=== PATIENT | male | born 1970 | race Caucasian/White ===

== ENCOUNTER 2021-05-09 09:51 | Outpatient (REF) | payer OTHER, SELFPAY ==
[2021-05-09 11:27] LABS: MANUAL DIFF FLAG NO
[2021-05-09 11:38] LABS: Basophils Percent Auto 0.3 % (0-2); Eosinophils Absolute Auto 0.2 X10*3/uL (0.0-0.4); Eosinophils Percent Auto 2.9 % (0-4); Hemoglobin 19.3 g/dl (14.0-18.0); Imm Gran Abs Auto 0.03 X10*3/uL (0.00-0.03); Imm Gran Pct Auto 0.5 % (0.0-0.4); Lymphocytes Absolute Auto 0.8 X10*3/uL (1.2-4.9); Mean Corpuscular HGB Conc 33.9 g/dl (31.0-36.0); Mean Corpuscular Hemoglobin 29.7 pg (27.0-33.0); Mean Corpuscular Volume 87.7 fL (80-98); Mean Platelet Volume 9.8 fL (9.4-12.4); Monocytes Absolute Auto 0.6 X10*3/uL (0.1-1.2); Monocytes Percent Auto 9.4 % (2-11); Neutrophils Absolute Auto 4.7 X10*3/uL (2.0-8.3); Neutrophils Percent Auto 74.9 % (45-73); Platelet Count 260 X10*3/uL (160-400); White Blood Count 6.3 X10*3/uL (4.8-10.8)
[2021-05-09 12:04] LABS: Alanine Aminotransferase 29 U/L (0-40); Albumin Level 4.3 g/dL (3.5-5.0); Alkaline Phosphatase 75 U/L (39-117); Anion Gap 12 (12-20); Aspartate Amino Transferase 33 U/L (5-37); Bilirubin Total 1.2 mg/dL (0.0-1.0); Blood Urea Nitrogen 15 mg/dL (9-16); Calcium 9.4 mg/dL (8.4-10.2); Carbon Dioxide 25 mmol/L (22-29); Chloride 104 mmol/L (96-108); Cholesterol 162 mg/dL; Estimated Glomerular Filt Rate > 60; Glucose Fasting 90 mg/dL (60-99); HDL Cholesterol 56 mg/dL; LDL Cholesterol Calculated 65 mg/dl; Potassium 4.4 mmol/L (3.3-5.1); Sodium 137 mmol/L (135-145); Triglycerides 206 mg/dL
== END 2021-05-09 09:52 | disposition home or self-care (01) ==
LOC: HO.HMGCLDS 09:51
PROVIDERS: PCP Internal Medicine; Visit Provider Internal Medicine
DX: K21.9 Gastro-esophageal reflux disease without esophagitis (principal); E78.5 Hyperlipidemia, unspecified; I10 Essential (primary) hypertension; D64.9 Anemia, unspecified
CPT/HCPCS: 36415; 80053; 80061; 85025

== ENCOUNTER 2022-01-24 06:41 | Outpatient (REF) | payer BC, SELFPAY ==
[2022-01-24 07:03] LABS: MANUAL DIFF FLAG NO
[2022-01-24 07:51] LABS: Basophils Absolute Auto 0.1 X10*3/uL (0.0-0.2); Basophils Percent Auto 0.8 % (0-2); Eosinophils Absolute Auto 0.1 X10*3/uL (0.0-0.4); Hematocrit 54.6 % (42.0-52.0); Imm Gran Abs Auto 0.06 X10*3/uL (0.00-0.03); Lymphocytes Absolute Auto 0.7 X10*3/uL (1.2-4.9); Lymphocytes Percent Auto 12.1 % (20-40); Mean Corpuscular HGB Conc 34.8 g/dl (31.0-36.0); Mean Corpuscular Hemoglobin 30.7 pg (27.0-33.0); Mean Corpuscular Volume 88.3 fL (80.0-98.0); Mean Platelet Volume 9.8 fL (9.4-12.4); Monocytes Absolute Auto 0.6 X10*3/uL (0.1-1.2); Monocytes Percent Auto 10.1 % (2-11); Neutrophils Absolute Auto 4.4 x10*3/uL (2.0-8.3); Platelet Count 233 X10*3/uL (160-400); Red Blood Count 6.18 X10*6/uL (4.60-5.80)
[2022-01-24 08:17] LABS: Alanine Aminotransferase 30 U/L (0-40); Albumin Level 4.2 g/dL (3.5-5.0); Alkaline Phosphatase 59 U/L (39-117); Anion Gap 13 (12-20); Aspartate Amino Transferase 29 U/L (5-37); Blood Urea Nitrogen 11 mg/dL (9-16); Calcium 8.7 mg/dL (8.4-10.2); Carbon Dioxide 25 mmol/L (22-29); Chloride 103 mmol/L (96-108); Cholesterol 150 mg/dL; Estimated Glomerular Filt Rate > 60; Glucose Fasting 94 mg/dL (60-99); HDL Cholesterol 48 mg/dL; LDL Cholesterol Calculated 37 mg/dl; Potassium 3.7 mmol/L (3.3-5.1); Sodium 137 mmol/L (135-145); Total Protein 6.8 g/dL (6.5-8.0); Triglycerides 326 mg/dL
[2022-01-24 08:37] LABS: Prostate Specific Antigen Scr 0.32 ng/mL (<0.05-4.0)
[2022-01-26 16:37] LABS: Lutenizing Hormone <0.2 mIU/mL (1.5-9.3)
[2022-01-30 04:36] LABS: Estradiol Free 1.78 pg/mL; Estradiol, Ultrasensitive 75 pg/mL (< OR = 29)
[2022-02-02 01:18] LABS: Dihydrotestosterone 71 ng/dL (12-65)
== END 2022-01-24 06:42 | disposition home or self-care (01) ==
LOC: HO.LAB 06:41
PROVIDERS: Absent Provider Physician Assistant; PCP Internal Medicine; Visit Provider Internal Medicine
DX: I10 Essential (primary) hypertension (principal); D64.9 Anemia, unspecified; D58.2 Other hemoglobinopathies; E78.5 Hyperlipidemia, unspecified; E11.9 Type 2 diabetes mellitus without complications; R53.83 Other fatigue; R97.20 Elevated prostate specific antigen [PSA]; E29.1 Testicular hypofunction; Z12.5 Encounter for screening for malignant neoplasm of prostate
CPT/HCPCS: 36415; 80053; 80061; 82642; 82670; 82681; 83001; 83002; 84153; 84402; 84403; 85025; 85027

== ENCOUNTER 2024-02-21 08:22 | Outpatient (AMB) | payer OTHER, SELFPAY ==
--- NOTE | 2024-02-21 08:25 | MHC.PC.OV ---
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 Accompanied by: Spouse Allergies seasonal allergies Allergy (Intermediate, Uncoded 02/21/24 08:35) runny nose, itchy eye Medication List - Last Reconciled 02/21/24 by Shea Del Rosario MD amlodipine 10 mg PO DAILY 90 days bisacodyl (Dulcolax (bisacodyl)) 10 mg (2 x 5 mg) PO ONCE 2 days omeprazole 20 mg PO DAILY 90 days polyethylene glycol 3350 (Miralax) 238 grams PO ONCE 1 day [testosterone cypionate 200 mg Not Applicable USEASDIRECTD] Tobacco use date assessed: 02/21/24 Dental Screening Dental Screen Date: 02/21/24 Did you have a dental visit in the last 12 months?: Yes Did you have a dental problem in the last 6 months where you did not have access to dental care?: No Was dental information given to patient?: Patient has dentist HPI HPI Comments History of Present Illness Details This is a 53-year-old male that comes for his physical exam. Denies any chest pain or shortness on breath. Has never had a colonoscopy and will be refer through open access. Follows with Urology for he has hypogonadism and history of testicular cancer. Complains of a foot lesion in right 2nd toe that has been bothering him for years and will be referred to Podiatry. Was advised to cut down on drinking alcohol. [facility] Medical History (Updated 02/21/24 @ 08:57 by Shea Del Rosario MD) History of testicular cancer Testosterone deficiency GERD (gastroesophageal reflux disease) Essential hypertension Surgical History History of orchiectomy History of inguinal hernia repair Family History (Updated 02/21/24 @ 08:41 by Shea Del Rosario MD) Father Hypertension CVD (cardiovascular disease) Mother CVD (cardiovascular disease) Hypertension Lung cancer Paternal Grandfather Lung cancer Maternal Aunt Diabetes Social History Household Members: Spouse Housing: House Alcohol intake: current Alcohol intake frequency: a few times a week Alcohol type: hard liquor Patient Tobacco Use Status: Never used Tobacco e-Cigarette/Vaping Use: Never Used Second Hand Smoke Exposure: No Substance Use Type: Marijuana service: No Current occupational status: employed Current occupational exposures/hazards: No Cognitive needs: No Hearing needs: No Vision needs: Yes Questionnaire PHQ-9 Over the last 2 weeks, how often have you been bothered by any of the following problems? 1. Little interest or pleasure in doing things: not at all 2. Feeling down, depressed, or hopeless: not at all 3. Trouble falling or staying asleep, or sleeping too much: not at all 4. Feeling tired or having little energy: not at all 5. Poor appetite or overeating: not at all 6. Feeling bad about yourself - or that you are a failure or have let yourself or your family down: not at all 7. Trouble concentrating on things, such as reading the newspaper or watching television: not at all 8. Moving or speaking so slowly that other people could have noticed. Or the opposite - being so fidgety or restless that you have been moving around a lot more than usual: not at all 9. Thoughts that you would be better off or of hurting yourself in some way: not at all Total score: 0 Depression Screening Interpretation: Negative Depression Screening Done: Yes 28071 - PHQ-9 Billing: Yes Source: Developed by Drs. Nilesh Starr, Kim Mckeon, Graeme Younger and colleagues, with an educational whit from [employer]. Thrive Questionnaire Date Thrive assessed: 02/21/24 I am a: Patient What is your living situation today?: I have a steady place to live Within the past 12 months, did the food you bought not last and you didn't have the money to get more?: Never true Within the past 12 months, did you worry whether your food would run out before you got money to buy more?: Never true Do you have trouble paying for medicines?: No Do you have trouble getting transportation to medical appointments?: No Do you have trouble paying your heating and electricity bill?: No Do you have trouble taking care of your child, family member or friend?: No Do you have trouble with day-to-day activities such as bathing, preparing meals, shopping, managing finances, etc.?: No Are you currently unemployed and looking for a job?: No Are you interested in more education?: No Please select the resources that you would like help with: None Currently or been in a relationship where the following occur: No concerns reported THRIVE Score: 0 AUDIT C Alcohol Use Questionnaire (AUDIT-C) 1. How often do you have a drink containing alcohol?: 2-4 times a month 2. How many drinks containing alcohol do you have on a typical day when you are drinking?: 5 or 6 3. How often do you have six or more drinks on one occasion?: Monthly Total Score: 6 Score Reviewed/Action Taken: Yes CHELLE-7 AMB Questionnaire CHELLE-7 Date CHELLE - 7 assessed: 02/21/24 Feeling nervous, anxious, or on edge: 0 = Not at all Not being able to stop or control worryin = Not at all Worrying too much about different things: 0 = Not at all Trouble relaxin = Not at all Being so restless that it is hard to sit still: 0 = Not at all Becoming easily annoyed or irritable: 0 = Not at all Feeling afraid as if something awful might happen: 0 = Not at all Total CHELLE-7 score (0-4 normal; 5-9 mild; 10-14 moderate; 15-21 severe): 0 Source: Developed by Drs. Nilesh Starr, Kim Mckeon, Graeme Younger and colleagues, with an educational whit from [employer]. CHELLE-7 Assessment Billing CHELLE-7 Assessment Tool: CHELLE-7 Assessment 11759 Review of Systems Const All systems reviewed & are unremarkable except as noted in HPI and below Card Denies chest pain at rest, Denies chest pain with activity, Denies edema, Denies irregular heart rhythm, Denies claudication, Denies dyspnea, Denies dyspnea on exertion, Denies orthopnea, Denies paroxysmal nocturnal dyspnea and Denies slow heart rate Resp Denies cough, Denies dyspnea and Denies dyspnea on exertion Musc Denies abnormal gait Neuro Denies abnormal gait, Denies behavioral changes, Denies confusion and Denies lack of coordination Psych Denies behavioral changes and Denies confusion Endo Denies cold intolerance Physical exam (Primary Care) Vital Signs: Last Vital Signs BP 120/86 02/21/24 08:26 BMI result Body Mass Index 26.2 Tobacco/Smoking Status: Tobacco use Status Tobacco use date assessed 02/21/24 02/21/24 08:34 Patient Tobacco Use Status Never used Tobacco 02/21/24 08:34 e-Cigarette/Vaping Use Never Used 02/21/24 08:34 PHQ-9: PHQ-9 Score PHQ-9: Total score 0 02/21/24 08:34 Depression Screening Interpretation: Negative Thrive Assessment: Date of Thrive Assessment Date Thrive assessed 02/21/24 02/21/24 08:34 Currently or been in a relationship where the following occur: No concerns reported Const General: No confusion Orientation/consciousness: patient oriented x3 and No confusion HENMT Head: Yes normal to inspection, Yes normocephalic and Yes atraumatic Ears: external ears normal General nose exam: Normal external nose present and No nasal discharge present Face and sinus: Yes sinuses nontender Mouth: lip normal Eyes General: appearance normal, both eyes and all related structures Eyelids: Yes eyelids normal Conjunctivae: conjunctivae normal Neck Neck: Yes normal visual inspection and Yes supple Resp Effort & Inspection: normal respiratory effort Auscultation: clear to auscultation bilaterally Cardio Jugular venous distension: no JVD Rate: regular rate Rhythm: regular rhythm Heart sounds: S1 normal heart sound present and S2 normal heart sound present GI Inspection: Yes normal to inspection Palpation (GI): Soft to palpation and nontender Auscultation: normal bowel sounds Skin Other: foot lesion in right 2nd toe General skin exam: no rashes or lesions noted Neuro General: patient oriented x3, no focal motor deficits and No confusion Extrem General: Yes full ROM Psych Appearance: grossly normal Assessment and Plan Assessment & Plan (1) Physical exam: Code(s): Z00.00 - Encounter for general adult medical examination without abnormal findings Plan: Repeat in a year. (2) Foot lesion: Code(s): L98.9 - Disorder of the skin and subcutaneous tissue, unspecified Plan: Referred to Podiatry. Orders: Orders Comprehensive [place]. Panel Fast Today Z00.00 - Encounter for general adult medical examination without abnormal findings Lipid Panel Today Z00.00 - Encounter for general adult medical examination without abnormal findings Referrals Podiatry Referral L98.9 - Disorder of the skin and subcutaneous tissue, unspecified Open Access Screening Colonoscopy Referral Z12.11 - Encounter for screening for malignant neoplasm of colon Coding Level of Care Code Est Pt Level 3 (93265) Est Pt Prev Care 40-64y(84288) Diagnoses Physical exam Z00.00 Foot lesion L98.9 Additional Codes CHELLE-7 Assessment Billing - CHELLE-7 Assessment Tool: CHELLE-7 Assessment 04347 ([id number]) Time Spent (min) 32
[2024-02-21 08:26] VITALS: BP 120/86; BMI 26.2
== END 2024-02-21 08:59 | disposition home or self-care (01) ==
PROVIDERS: PCP Internal Medicine; Visit Provider Internal Medicine
DX: Z00.00 Encounter for general adult medical examination without abnormal findings (principal); L98.9 Disorder of the skin and subcutaneous tissue, unspecified
CPT/HCPCS: 99396

== ENCOUNTER → 2024-03-24 07:58 | Outpatient (REF) | payer OTHER, SELFPAY ==
--- NOTE | 2024-03-24 08:01 | CA_ITS ---
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 The visually estimated ejection fraction is >70%. - Severe concentric left ventricular hypertrophy(1.96cm); additionally asymmetric septal hypertrophy(2.37cm). Could indicate hypertrophic cardiomyopathy. - No obvious valvular pathology seen on this study. Findings Left Ventricle Normal left ventricular cavity size. There is severely increased left ventricular wall thickness. The left ventricular systolic function is hyperdynamic. The visually estimated ejection fraction is >70%. Evidence suggests grade I (mild) diastolic dysfunction. There is severe septal asymmetric hypertrophy. Resting LVOT gradient about 15 mmHg; peak about 57 mmHg with valsalva. Right Ventricle Mildly increased right ventricular cavity size. There is normal right ventricular systolic function. Atria Both atria are normal in size. Aortic Valve There is a normal trileaflet aortic valve. There is no aortic valve stenosis. There is trace (trivial) aortic valve regurgitation. Mitral Valve The mitral valve appears normal. There is trace mitral valve regurgitation. There is no mitral valve stenosis. Pulmonic Valve The pulmonic valve is likely normal. Tricuspid Valve There is trace tricuspid valve regurgitation. There is no evidence of pulmonary hypertension. Great Vessels The asc aorta is normal in size. There is mild dilatation of the aortic arch measuring 3.90 cm. Aortic arch diameter about 3.9 cm but not clear if that is at the origin of a major vessel. Venous The inferior vena cava is normal in size and collapses greater than 50% with inspiration. Pericardium/Pleural There is no evidence of pericardial effusion. Prior Study Comparison No prior study available for comparison. Recommendations, Care & Conclusions No obvious valvular pathology seen on this study. Measurements 2D Linear Measurements IVSd: 2.37 0.6-0.9/0.6-1.0 cm LVIDd: 3.04 3.9-5.3/4.2-5.9 cm LVIDd Index: 1.45 2.4-3.2/2.2-3.1 cm/m2 LVIDs: 1.58 2.0-3.6 cm LVPWd: 1.96 0.7-1.1 cm LA Diam: 4.10 2.7-3.8/3.0-4.0 cm LAIDs Index: 1.96 1.5-2.3 cm/m2 LV Mass: 387.11 67-162/88-224 g LV Mass Index: 185.22 43-95/49-115 g/m2 LVOT Diam: 2.20 3.0+(-)1.3 cm 2D Systolic Function EF 4C: 63.20 >55% EF 2C: 60.90 >55% EF BiP: 62.80 >55% Mitral Valve MV Pk E: 0.72 MV PK A: 1.06 MV Decel Time: 308.00 E/A: 0.70 E'Lateral: 6.20 E'Medial: 5.44 E/E' Med: 13.20 E/E' Lat: 11.50 PHT: 90.00 MVA PHT: 2.44 Decel Loving: 2.32 Aortic Valve AoV Pk Terry: 2.72 AoV Mn Terry: 1.92 AoV VTI: 0.48 AoV Pk Grad: 30.00 Aov Mn Grad: 17.00 ROSA Cont.VTI: 2.72 AI Pk Terry: 4.43 AI Loving: 2.88 LVOT LVOT Pk Terry: 1.96 LVOT Mn Terry: 1.36 LVOT VTI: 0.35 LVOT Pk Grad: 15.00 LVOT Mn Grad: 9.00 LVOT Diam: 2.20 LVOT Area: 3.80 Diastolic Function MV Pk E: 0.72 MV Pk A: 1.06 E/A: 0.70 E'Medial: 5.44 E/E' Med: 13.20 E' Laterial: 6.20 E/E' Lat: 11.50 Right Ventricle TAPSE (mm): 17.10 TVS' Terry: 13.10 Tricuspid Valve RA Press: 3.00 Great Vessels Aorta Sinus of Valsalva: 3.70 2.0-3.5 cm Ao Asc: 3.70 2.1-3.4 cm Ao Arch: 3.90 Pulmonary Valve PV Pk Terry: 0.94 Peak PV Grad: 4.00 Updated in Other Vendor System with Status of Final Larry Elder MD electronically signed on 03/24/2024 12:20:55 PM with status of Final
== END ==
LOC: HO.CARD 07:58
PROVIDERS: PCP Internal Medicine; Visit Provider Internal Medicine
DX: R01.1 Cardiac murmur, unspecified (principal)
CPT/HCPCS: 93306

== ENCOUNTER → 2024-03-24 08:01 | Outpatient (BNV) | payer OTHER, SELFPAY | PROVIDERS: PCP Internal Medicine; Visit Provider Internal Medicine | DX: I42.2 Other hypertrophic cardiomyopathy (principal) | CPT/HCPCS: 93306 ==

== ENCOUNTER 2024-05-12 08:12 | Outpatient (REF) | payer OTHER, SELFPAY ==
[2024-05-12 10:28] LABS: Alanine Aminotransferase 32 U/L (0-40); Albumin Level 4.1 g/dL (3.5-5.0); Alkaline Phosphatase 64 U/L (39-117); Anion Gap 8 (12-20); Aspartate Amino Transferase 28 U/L (5-37); Bilirubin Total 0.8 mg/dL (0.0-1.0); Blood Urea Nitrogen 8 mg/dL (9-16); Calcium 9.1 mg/dL (8.4-10.2); Carbon Dioxide 30 mmol/L (22-29); Chloride 105 mmol/L (96-108); Cholesterol 156 mg/dL (<200); Estimated Glomerular Filt Rate > 60; Glucose Fasting 99 mg/dL (60-99); HDL Cholesterol 51 mg/dL (>40); LDL Cholesterol Calculated 58 mg/dL (<100); Sodium 139 mmol/L (135-145); Total Protein 6.8 g/dL (6.5-8.0); Triglycerides 235 mg/dL (<150)
== END 2024-05-12 08:13 | disposition home or self-care (01) ==
LOC: HO.HMGCLDS 08:12
PROVIDERS: PCP Internal Medicine; Visit Provider Internal Medicine
DX: Z00.00 Encounter for general adult medical examination without abnormal findings (principal)
CPT/HCPCS: 36415; 80053; 80061

== ENCOUNTER 2024-05-28 09:31 | Outpatient (AMB) | payer OTHER, SELFPAY ==
[2024-05-28 09:33] VITALS: BP 134/84; PULSE 89; BMI 26.7
--- NOTE | 2024-05-28 09:33 | MHC.OFFVIS ---
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 It seems that because of cardiac murmur he underwent an echocardiogram that showed hyperdynamic LVEF and severe left ventricular hypertrophy. There was concern for hypertrophic cardiomyopathy. Hence he is referred here. Patient states he is generally fine and does not have any major issues. He is on testosterone replacement because of testicular cancer/orchiectomy. Otherwise, when he was younger apparently he was doing steroids for body building extra but not recently. Otherwise, very active with absolutely no limitations. It does not get any angina. Has hypertension on amlodipine. Today's blood pressure seems reasonable. Otherwise, no family history of any inherited cardiomyopathies or any other major concerns. COUNTS INCLUDE 234 BEDS AT THE [facility] Medical History (Updated 05/28/24 @ 10:05 by Larry Elder MD) History of testicular cancer Testosterone deficiency GERD (gastroesophageal reflux disease) Essential hypertension Surgical History History of orchiectomy History of inguinal hernia repair Family History Father Hypertension CVD (cardiovascular disease) Mother CVD (cardiovascular disease) Hypertension Lung cancer Paternal Grandfather Lung cancer Maternal Aunt Diabetes Social History Household Members: Spouse Housing: House Alcohol intake: current Alcohol intake frequency: a few times a week Alcohol type: hard liquor Patient Tobacco Use Status: Never used Tobacco e-Cigarette/Vaping Use: Never Used Second Hand Smoke Exposure: No Substance Use Type: Marijuana service: No Current occupational status: employed Current occupational exposures/hazards: No Cognitive needs: No Hearing needs: No Vision needs: Yes Review of Systems Const Denies chills, Denies daytime sleepiness, Denies fatigue, Denies fever(s), Denies poor appetite, Denies snoring, Denies stops breathing during sleep, Denies weakness, Denies weight gain and Denies weight loss Eyes Denies loss of vision ENT Denies dizziness and Denies hearing loss Card Denies chest pain, Denies irregular heart rhythm, Denies claudication, Denies leg edema, Denies lightheadedness, Denies palpitations, Denies dyspnea on exertion and Denies orthopnea Resp Denies cough, Denies excessive phlegm production, Denies dyspnea on exertion, Denies snoring and Denies wheezing GI Denies abdominal pain, Denies hematochezia, Denies change in bowel habits, Denies nausea and Denies vomiting Denies dysuria and Denies urinary frequency Musc Denies arthralgias, Denies muscle weakness, Denies numbness and Denies other Skin/Breast Denies nail changes and Denies rash Neuro Denies Abnormal speech present, Denies dizziness, Denies loss of vision, Denies memory loss, Denies numbness and Denies weakness Psych Denies depression and Denies memory loss Endo Denies fatigue and Denies palpitations [place]/Lymph Denies easy bruising Aller/Immun Denies wheezing Physical Exam Vital Signs: Last Vital Signs Pulse 89 05/28/24 09:33 BP 134/84 05/28/24 09:33 BMI result Body Mass Index 26.7 Const General: comfortable and no acute distress Orientation/consciousness: patient oriented x3 HEENT Other: Unremarkable Head: Yes normal to inspection Neck Neck: Yes normal visual inspection Chest Chest palpation & inspection: normal inspection of the chest Resp Auscultation: clear to auscultation bilaterally Cardio Palpation: normal PMI Heart sounds: S1 normal heart sound present, S2 normal heart sound present, no gallops, Murmur heart sound present systolic II/ and at the right sternal border and no rubs GI Palpation (GI): Soft to palpation Back/Spine/Pelvis Other: unremarkable Skin General skin exam: no rashes or lesions noted Neuro General: patient oriented x3 Speech: No Abnormal speech present Extrem General: Yes normal to inspection Psych Mental Status: mental status grossly normal Office Procedures EKG Details: EKG with underlying sinus rhythm at 84/Min; left ventricular hypertrophy [place] [id number], Complete Assessment & Plan Assessment & Plan (1) HOCM (hypertrophic obstructive cardiomyopathy): Code(s): I42.1 - Obstructive hypertrophic cardiomyopathy Category: Medical (2) Essential hypertension: Code(s): I10 - Essential (primary) hypertension Category: Medical Plan Cardiac studies reviewed. EKG shows left ventricular hypertrophy/strain pattern. In the echocardiogram, hyperdynamic LVEF > 70%. There is severe septal hypertrophy. Septum measures 2.37 cm. Elsewhere, 1.96 cm. Resting LVOT gradient is 15 mm Hg with a peak of 57 mm Hg with Valsalva. Aortic arch measurement 3.9 cm. Findings discussed with patient. Possibly hypertrophic cardiomyopathy, unless likely hypertension induced LVH. We will proceed with cardiac MRI for further evaluation. A prior chest CT scan shows mild coronary artery calcifications and we will get a dedicated coronary CTA to assess that further. Clinically however, he has no angina. With regard to hypertension, advised him to do home readings and bring it back next time. We can review that and adjust medications as needed. Orders: Orders MR cardiac morph fnct w con Today I42.1 - Obstructive hypertrophic cardiomyopathy CT Cardiac Coronary Angio Today I25.10 - Atherosclerotic heart disease of [place] coronary artery without angina pectoris Coding Level of Care Code New Pt Level 4 (34674) Diagnoses HOCM (hypertrophic obstructive cardiomyopathy) I42.1 Essential hypertension I10 CPT Codes EKG - CPT: 82457-[id number], Complete ([id number])
== END 2024-05-28 10:12 | disposition home or self-care (01) ==
PROVIDERS: PCP Internal Medicine; Visit Provider Internal Medicine
DX: I42.1 Obstructive hypertrophic cardiomyopathy (principal); I10 Essential (primary) hypertension; R94.31 Abnormal electrocardiogram [ECG] [EKG]
CPT/HCPCS: 93010; 99214

== ENCOUNTER → 2024-05-28 09:31 | Outpatient (BNVA) | payer OTHER, SELFPAY | PROVIDERS: PCP Internal Medicine; Visit Provider Internal Medicine | DX: I42.1 Obstructive hypertrophic cardiomyopathy (principal); I10 Essential (primary) hypertension; I25.10 Atherosclerotic heart disease of native coronary artery without angina pectoris | CPT/HCPCS: 93005; 99212 ==

== ENCOUNTER 2024-08-07 07:32 | Outpatient (REF) | payer OTHER, SELFPAY ==
[2024-08-07 10:48] LABS: Anion Gap 11 (12-20); Blood Urea Nitrogen 12 mg/dL (9-16); Calcium 9.1 mg/dL (8.4-10.2); Carbon Dioxide 27 mmol/L (22-29); Chloride 107 mmol/L (96-108); Estimated Glomerular Filt Rate > 60; Glucose Random 73 mg/dL (60-115); Sodium 141 mmol/L (135-145)
== END 2024-08-07 07:33 | disposition home or self-care (01) ==
LOC: HO.HMGCLDS 07:32
PROVIDERS: PCP Internal Medicine; Visit Provider Internal Medicine
DX: I51.7 Cardiomegaly (principal); I10 Essential (primary) hypertension
CPT/HCPCS: 36415; 80048

== ENCOUNTER 2024-08-27 10:31 | Outpatient (AMB) | payer OTHER, SELFPAY ==
[2024-08-27 10:33] VITALS: BP 136/80; PULSE 94; BMI 27.2
--- NOTE | 2024-08-27 10:33 | MHC.OFFVIS ---
Vital Signs 08/27/24 10:33 Height 5 ft 11 in Weight 194 lb 14.218 oz BMI 27.2 BP 136/80 Blood Pressure Location Lt brachial Position Sitting Pulse 94 Pulse Source Pulse Oximeter Intake Visit Reasons: F/U s/p MRI Data Storage Specialist Required: No Accompanied by: Spouse Allergies seasonal allergies Allergy (Intermediate, Uncoded 02/21/24 08:35) runny nose, itchy eye Medication List - Last Reconciled 08/27/24 by Larry Elder MD amlodipine 10 mg PO DAILY 90 days bisacodyl (Dulcolax (bisacodyl)) 10 mg (2 x 5 mg) PO ONCE 2 days omeprazole 20 mg PO DAILY 90 days polyethylene glycol 3350 (Miralax) 238 grams PO ONCE 1 day [testosterone cypionate 200 mg Not Applicable USEASDIRECTD] HPI Comments Details: Mahin returns for follow-up. Recently seen in consultation regarding an abnormal echocardiogram. It seems that he underwent the study because of cardiac murmur. That showed hyperdynamic LVEF/severe left ventricular hypertrophy. There was concern for hypertrophic cardiomyopathy. Overall, he is feels fine for the most part and does not really have any major limitations. Fully active without any clear-cut symptoms. On testosterone replacement because of testicular cancer history/orchiectomy. When he was young, he was doing steroids for body building but nothing recently. Otherwise, hypertension on amlodipine. No clear family history of any inherited cardiomyopathies or other concerns. Since last seen, he has completed a cardiac MRI. Coronary CTA was not approved by insurance. [facility] Medical History (Updated 05/28/24 @ 10:05 by Larry Elder MD) History of testicular cancer Testosterone deficiency GERD (gastroesophageal reflux disease) Essential hypertension Surgical History History of orchiectomy History of inguinal hernia repair Family History Father Hypertension CVD (cardiovascular disease) Mother CVD (cardiovascular disease) Hypertension Lung cancer Paternal Grandfather Lung cancer Maternal Aunt Diabetes Social History Household Members: Spouse Housing: House Alcohol intake: current Alcohol intake frequency: a few times a week Alcohol type: hard liquor Patient Tobacco Use Status: Never used Tobacco e-Cigarette/Vaping Use: Never Used Second Hand Smoke Exposure: No Substance Use Type: Marijuana service: No Current occupational status: employed Current occupational exposures/hazards: No Cognitive needs: No Hearing needs: No Vision needs: Yes Review of Systems Const Denies chills, Denies fatigue, Denies fever(s), Denies weight gain and Denies weight loss ENT Denies dizziness Card Denies chest pain, Denies leg edema, Denies lightheadedness, Denies palpitations, Denies dyspnea on exertion, Denies orthopnea and Denies other Resp Denies cough and Denies dyspnea on exertion GI Denies hematochezia and Denies change in stool character Musc Denies abnormal gait, Denies muscle weakness, Denies numbness, Denies radiating pain into limb and Denies tingling Neuro Denies abnormal gait, Denies dizziness, Denies numbness and Denies tingling Endo Denies fatigue and Denies palpitations Physical Exam Vital Signs: Last Vital Signs Pulse 94 08/27/24 10:33 BP 136/80 08/27/24 10:33 BMI result Body Mass Index 27.2 Const General: comfortable and no acute distress Orientation/consciousness: patient oriented x3 HEENT Other: Unremarkable Head: Yes normal to inspection Neck Neck: Yes normal visual inspection Chest Chest palpation & inspection: normal inspection of the chest Resp Auscultation: clear to auscultation bilaterally Cardio Palpation: normal PMI Heart sounds: S1 normal heart sound present, S2 normal heart sound present, no gallops, Murmur heart sound present systolic II/ and at the right sternal border and no rubs GI Palpation (GI): Soft to palpation Back/Spine/Pelvis Other: unremarkable Skin General skin exam: no rashes or lesions noted Neuro General: patient oriented x3 Extrem General: Yes normal to inspection Psych Mental Status: mental status grossly normal Assessment & Plan Assessment & Plan (1) HOCM (hypertrophic obstructive cardiomyopathy): Code(s): I42.1 - Obstructive hypertrophic cardiomyopathy Category: Medical (2) Essential hypertension: Code(s): I10 - Essential (primary) hypertension Category: Medical Plan Cardiac studies reviewed. EKG shows left ventricular hypertrophy/strain pattern. In the echocardiogram, hyperdynamic LVEF > 70%. There is severe septal hypertrophy. Septum measures 2.37 cm. Elsewhere, 1.96 cm. Resting LVOT gradient is 15 mm Hg with a peak of 57 mm Hg with Valsalva. Aortic arch measurement 3.9 cm. Cardiac MRI-LVEF 61%. Severe basal septal hypertrophy, 1.9 cm. Moderate concentric LVH elsewhere. NEVAEH+. Left atrium moderately dilated. Mild mitral regurgitation. Delayed enhancement involving 44% of myocardium. Overall, diagnosed with hypertrophic cardiomyopathy. Coronary CTA was not approved by insurance. Findings discussed with patient and significant other. Discussed about the condition great detail. He has no overt symptoms and hence will hold off on medications at this time. Advised him to keep himself well hydrated and avoid any strenuous physical activity. We will refer to hypertrophic cardiomyopathy Clinic at [facility]. For testing, he can complete a stress test and Holter before that visit. With regard to hypertension, on amlodipine. Blood pressure seems reasonable. Discussed with significant other. Orders: Orders CA stress test Today I42.1 - Obstructive hypertrophic cardiomyopathy, R07.2 - Precordial pain NM cardiolite stress test Today I42.1 - Obstructive hypertrophic cardiomyopathy, R07.2 - Precordial pain ECG 3 day holter monitor Today I42.1 - Obstructive hypertrophic cardiomyopathy, I47.20 - Ventricular tachycardia, unspecified Referrals Cardiology Referral I42.1 - Obstructive hypertrophic cardiomyopathy Coding Level of Care Code Est Pt Level 4 (71565) Complex EM visit Add On G2211 Diagnoses HOCM (hypertrophic obstructive cardiomyopathy) I42.1 Essential hypertension I10
== END 2024-08-27 11:00 | disposition home or self-care (01) ==
PROVIDERS: PCP Internal Medicine; Visit Provider Internal Medicine
DX: I42.1 Obstructive hypertrophic cardiomyopathy (principal); I10 Essential (primary) hypertension
CPT/HCPCS: 99214; G2211

== ENCOUNTER → 2024-08-27 10:31 | Outpatient (BNVA) | payer OTHER, SELFPAY | PROVIDERS: PCP Internal Medicine; Visit Provider Internal Medicine | DX: I42.1 Obstructive hypertrophic cardiomyopathy (principal); I10 Essential (primary) hypertension | CPT/HCPCS: 99212 ==

== ENCOUNTER → 2024-10-22 08:08 | Outpatient (REF) | payer OTHER, SELFPAY | LOC: HO.CARD 08:08 | PROVIDERS: Visit Provider Internal Medicine | DX: I42.1 Obstructive hypertrophic cardiomyopathy (principal); I47.20 Ventricular tachycardia, unspecified | CPT/HCPCS: 93242 ==

== ENCOUNTER → 2024-10-22 08:11 | Outpatient (BNV) | payer OTHER, SELFPAY | PROVIDERS: Visit Provider Internal Medicine | DX: I49.3 Ventricular premature depolarization (principal) | CPT/HCPCS: 93244 ==

== ENCOUNTER 2024-10-29 16:43 | Outpatient (AMB) | payer OTHER, SELFPAY ==
--- NOTE | 2024-10-29 16:44 | A.OFFPC_ITS ---
Vital Signs 10/29/24 16:46 Height 5 ft 11 in Weight 195 lb BMI 27.2 BP 150/100 H Blood Pressure Location Lt brachial Position Sitting Intake Visit Reasons: BP Intake Note: Patient here for a follow up BP Benefits Representative Required: No Accompanied by: Self / Same As Patient Allergies seasonal allergies Allergy (Intermediate, Uncoded 10/29/24 16:58) runny nose, itchy eye Medication List - Last Reconciled 10/29/24 by Shea Del Rosario MD amlodipine 10 mg PO DAILY 90 days omeprazole 20 mg PO DAILY 90 days [testosterone cypionate 200 mg Not Applicable USEASDIRECTD] Tobacco use date assessed: 10/29/24 Dental Screening Dental Screen Date: 10/29/24 Did you have a dental visit in the last 12 months?: Yes Did you have a dental problem in the last 6 months where you did not have access to dental care?: No Was dental information given to patient?: Patient has dentist HPI HPI Comments History of Present Illness Details The patient is a 53-year-old male presenting for a follow-up regarding cardiac health and to manage his recently diagnosed hypertrophic cardiomyopathy. This condition was confirmed with a cardiac MRI in July, revealing a normal left ventricle but an increase in the thickness of the right ventricle and septum, consistent with hypertrophic cardiomyopathy. The patient reports symptoms like occasional shortness of breath upon exertion, especially when climbing stairs rapidly. He has no significant complaints of chest pain. His background includes a history of testicular cancer leading to the removal of the right testicle, and testosterone deficiency, for which he receives testosterone therapy monitored by a urologist. 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 He has lately been dealing with elevated stress levels following familial losses, which have contributed to increased alcohol consumption. The patient admits that this has negatively impacted his hypertension control, for which he is prescribed amlodipine. [facility] Medical History History of testicular cancer Testosterone deficiency GERD (gastroesophageal reflux disease) Essential hypertension Surgical History History of orchiectomy History of inguinal hernia repair Family History Father Hypertension CVD (cardiovascular disease) Mother CVD (cardiovascular disease) Hypertension Lung cancer Paternal Grandfather Lung cancer Maternal Aunt Diabetes Social History Household Members: Spouse Housing: House Alcohol intake: current Alcohol intake frequency: a few times a week Alcohol type: hard liquor Patient Tobacco Use Status: Never used Tobacco e-Cigarette/Vaping Use: Never Used Second Hand Smoke Exposure: No Substance Use Type: Marijuana service: No Current occupational status: employed Current occupational exposures/hazards: No Cognitive needs: No Hearing needs: No Vision needs: Yes Questionnaire PHQ-9 Over the last 2 weeks, how often have you been bothered by any of the following problems? 1. Little interest or pleasure in doing things: not at all 2. Feeling down, depressed, or hopeless: not at all 3. Trouble falling or staying asleep, or sleeping too much: not at all 4. Feeling tired or having little energy: not at all 5. Poor appetite or overeating: not at all 6. Feeling bad about yourself - or that you are a failure or have let yourself or your family down: not at all 7. Trouble concentrating on things, such as reading the newspaper or watching television: not at all 8. Moving or speaking so slowly that other people could have noticed. Or the opposite - being so fidgety or restless that you have been moving around a lot more than usual: not at all 9. Thoughts that you would be better off or of hurting yourself in some way: not at all Total score: 0 Depression Screening Interpretation: Negative Depression Screening Done: Yes 59642 - PHQ-9 Billing: Yes Source: Developed by Drs. Nilesh Starr, Kim Mckeon, Graeme Younger and colleagues, with an educational whit from [employer]. Thrive Questionnaire Date Thrive assessed: 10/29/24 I am a: Patient What is your living situation today?: I have a steady place to live Within the past 12 months, did the food you bought not last and you didn't have the money to get more?: Never true Within the past 12 months, did you worry whether your food would run out before you got money to buy more?: Never true Do you have trouble paying for medicines?: No Do you have trouble getting transportation to medical appointments?: No Do you have trouble paying your heating and electricity bill?: No Do you have trouble taking care of your child, family member or friend?: No Do you have trouble with day-to-day activities such as bathing, preparing meals, shopping, managing finances, etc.?: No Are you currently unemployed and looking for a job?: No Are you interested in more education?: No Please select the resources that you would like help with: None Currently or been in a relationship where the following occur: No concerns reported THRIVE Score: 0 AUDIT C Alcohol Use Questionnaire (AUDIT-C) 1. How often do you have a drink containing alcohol?: 2-4 times a month 2. How many drinks containing alcohol do you have on a typical day when you are drinking?: 5 or 6 3. How often do you have six or more drinks on one occasion?: Monthly Total Score: 6 Score Reviewed/Action Taken: Yes CHELLE-7 AMB Questionnaire CHELLE-7 Date CHELLE - 7 assessed: 10/29/24 Feeling nervous, anxious, or on edge: 0 = Not at all Not being able to stop or control worryin = Not at all Worrying too much about different things: 0 = Not at all Trouble relaxin = Not at all Being so restless that it is hard to sit still: 0 = Not at all Becoming easily annoyed or irritable: 0 = Not at all Feeling afraid as if something awful might happen: 0 = Not at all Total CHELLE-7 score (0-4 normal; 5-9 mild; 10-14 moderate; 15-21 severe): 0 Source: Developed by Drs. Nilesh Starr, Kim Mckeon, Graeme Younger and colleagues, with an educational whit from [employer]. CHELLE-7 Assessment Billing CHELLE-7 Assessment Tool: CHELLE-7 Assessment 94301 Review of Systems Const All systems reviewed & are unremarkable except as noted in HPI and below Card Denies chest pain at rest, Denies chest pain with activity, Denies edema, Denies irregular heart rhythm, Denies claudication, Denies dyspnea, Denies dyspnea on exertion, Denies orthopnea, Denies paroxysmal nocturnal dyspnea and Denies slow heart rate Resp Denies cough, Denies dyspnea and Denies dyspnea on exertion GI Denies abdominal pain, Denies change in bowel habits, Denies excessive flatus, Denies nausea and Denies vomiting Physical exam (Primary Care) Vital Signs: Last Vital Signs BP 150/100 H 10/29/24 16:46 BMI result Body Mass Index 27.2 Tobacco/Smoking Status: Tobacco use Status Tobacco use date assessed 10/29/24 10/29/24 16:52 Patient Tobacco Use Status Never used Tobacco 10/29/24 16:52 e-Cigarette/Vaping Use Never Used 10/29/24 16:52 PHQ-9: PHQ-9 Score PHQ-9: Total score 0 10/29/24 17:01 Depression Screening Interpretation: Negative Thrive Assessment: Date of Thrive Assessment Date Thrive assessed 10/29/24 10/29/24 16:52 Currently or been in a relationship where the following occur: No concerns reported Resp Effort & Inspection: normal respiratory effort Auscultation: clear to auscultation bilaterally Cardio Jugular venous distension: no JVD Rate: regular rate Rhythm: regular rhythm Heart sounds: Murmur heart sound present Extrem General: Yes full ROM Coding Level of Care Code Est Pt Level 4 (58741) Complex EM visit Add On G2211 Diagnoses HOCM (hypertrophic obstructive cardiomyopathy) I42.1 Testosterone deficiency E34.9 Secondary polycythemia D75.1 Essential hypertension I10 Additional Codes CHELLE-7 Assessment Billing - CHELLE-7 Assessment Tool: CHELLE-7 Assessment [id number] ([id number]) PHQ-9 - 70651 - PHQ-9 Billing: Yes ([id number]) Time Spent (min) 23 Assessment & Plan Assessment & Plan (1) HOCM (hypertrophic obstructive cardiomyopathy): Code(s): I42.1 - Obstructive hypertrophic cardiomyopathy Category: Medical (2) Testosterone deficiency: Code(s): E34.9 - Endocrine disorder, unspecified Category: Medical (3) Secondary polycythemia: Code(s): D75.1 - Secondary polycythemia Category: Medical (4) Essential hypertension: Code(s): I10 - Essential (primary) hypertension Category: Medical Plan The management plan includes continued monitoring and intervention for hypertrophic cardiomyopathy, with emphasis placed on medication adherence for hypertension and lifestyle modifications to mitigate excessive drinking and smoking. The patient will undergo additional blood work to assess secondary polycythemia and ensure thorough cardiac health monitoring. A stress test is planned in coordination with cardiology follow-up and may include further testing if deemed necessary. The importance of regular follow-up appointments and adherence to treatment regimens was reiterated to manage his conditions effectively, along with exploring alternatives to smoking to preserve pulmonary health. Patient was informed and verbally consented to the use of an ambient scribe for clinic note documentation during this visit. I discussed with the patient the details of his hypertrophic cardiomyopathy and outlined the importance of managing this condition carefully. The importance of lifestyle changes, including reducing alcohol intake and exploring alternative methods of marijuana consumption, was highlighted to prevent aggravating his cardiovascular condition. I explained the rationale for performing periodic blood work, particularly in relation to past secondary polycythemia, to monitor any potential complications. We agreed on the need for a stress test and possible further evaluations as determined by his sole dyer. I emphasized the critical nature of adhering to the medication regimen to manage hypertension effectively and scheduled the required blood tests and follow-ups to coincide with his sole dyer appointment in November, ensuring a cohesive approach to his care. Orders: Orders Comprehensive [place]. Panel Fast Today I42.1 - Obstructive hypertrophic cardiomyopathy Lipid Panel Today E78.5 - Hyperlipidemia, unspecified, I42.1 - Obstructive hypertrophic cardiomyopathy Complete Blood Count Auto Diff Today D75.1 - Secondary polycythemia Referrals Open Access Screening Colonoscopy Referral Z12.12 - Encounter for screening for malignant neoplasm of rectum Medications: Refilled omeprazole 20 mg PO DAILY 90 caps 3RF 90 days amlodipine 10 mg PO DAILY 90 tabs 3RF 90 days Patient Instructions: - Continue taking amlodipine as prescribed for blood pressure control. - Reduce alcohol consumption to manage hypertension effectively. - Explore alternative methods to smoking marijuana, such as consuming edibles, to protect lung health. - Adhere to urologist-directed testosterone therapy and monitor for any changes. - Complete scheduled blood tests for polycythemia evaluation before the next sole dyer appointment in November. - Attend all scheduled follow-up appointments with cardiology to monitor and manage hypertrophic cardiomyopathy. - Maintain active engagement in lifestyle modifications and reach out with concerns or new symptoms. - Consider participating in stress-relief activities or counseling given recent stressors and family issues.
[2024-10-29 16:46] VITALS: BP 150/100; BMI 27.2
== END 2024-10-29 18:02 | disposition home or self-care (01) ==
LOC: HO.HMCH 16:44
PROVIDERS: PCP Internal Medicine; Visit Provider Internal Medicine
DX: I42.1 Obstructive hypertrophic cardiomyopathy (principal); E34.9 Endocrine disorder, unspecified; D75.1 Secondary polycythemia; I10 Essential (primary) hypertension

== ENCOUNTER → 2024-10-29 16:43 | Outpatient (BNVA) | payer OTHER, SELFPAY | PROVIDERS: PCP Internal Medicine; Visit Provider Internal Medicine | DX: I10 Essential (primary) hypertension (principal); I42.1 Obstructive hypertrophic cardiomyopathy; E34.9 Endocrine disorder, unspecified; D75.1 Secondary polycythemia; Z79.899 Other long term (current) drug therapy | CPT/HCPCS: 96127; 99212 ==

== ENCOUNTER 2025-02-18 13:48 | Outpatient (AMB) | payer OTHER, SELFPAY ==
[2025-02-18 13:53] VITALS: BP 130/70; PULSE 80; BMI 26.9
--- NOTE | 2025-02-18 13:53 | A.OFFVIS_ITS ---
Vital Signs 02/18/25 13:53 Height 5 ft 11 in Weight 193 lb BMI 26.9 BP 130/70 Blood Pressure Location Lt brachial Position Sitting Pulse 80 Pulse Source Monitor Intake Visit Reasons: follow up after testings [facility] Allergies seasonal allergies Allergy (Intermediate, Uncoded 10/29/24 16:58) runny nose, itchy eye Medication List - Last Reconciled 02/18/25 by Larry Elder MD amlodipine 10 mg PO DAILY 90 days omeprazole 20 mg PO DAILY PRN [testosterone cypionate 200 mg Not Applicable USEASDIRECTD] HPI Comments Details: Mahin returns for follow-up regarding hypertrophic cardiomyopathy. He underwent an echocardiogram because of cardiac murmur and then that showed hyperdynamic LVEF and severe ventricular hypertrophy. He underwent a cardiac MRI which confirmed hypertrophic cardiomyopathy. Subsequently, sent to [facility] for evaluation. Recommendation was to get an ICD and he is still thinking about it. He feels fine otherwise. No clear-cut cardiac symptoms. On testosterone replacement because of testicular cancer history/orchiectomy. When he was young, he was doing steroids for body building but nothing recently. Otherwise, hypertension on amlodipine. No clear family history of any inherited cardiomyopathies or other concerns. [facility] Medical History History of testicular cancer Testosterone deficiency GERD (gastroesophageal reflux disease) Essential hypertension Surgical History History of orchiectomy History of inguinal hernia repair Family History Father Hypertension CVD (cardiovascular disease) Mother CVD (cardiovascular disease) Hypertension Lung cancer Paternal Grandfather Lung cancer Maternal Aunt Diabetes Social History Household Members: Spouse Housing: House Alcohol intake: current Alcohol intake frequency: a few times a week Alcohol type: hard liquor Patient Tobacco Use Status: Never used Tobacco e-Cigarette/Vaping Use: Never Used Second Hand Smoke Exposure: No Substance Use Type: Marijuana service: No Current occupational status: employed Current occupational exposures/hazards: No Cognitive needs: No Hearing needs: No Vision needs: Yes Review of Systems Const Denies weakness ENT Denies dizziness Card Denies chest pain, Denies chest pain with activity, Denies syncope, Denies rapid heart rate, Denies pedal edema, Denies edema, Denies leg edema, Denies lightheadedness, Denies palpitations, Denies dyspnea, Reports dyspnea on exertion and Denies orthopnea Resp Denies cough, Denies dyspnea and Reports dyspnea on exertion GI Denies hematochezia and Denies change in stool character Musc Denies abnormal gait, Denies muscle cramps, Denies muscle weakness, Denies numbness, Denies radiating pain into limb and Denies tingling Neuro Denies abnormal gait, Denies dizziness, Denies syncope, Denies numbness, Denies tingling and Denies weakness Endo Denies palpitations Physical Exam Vital Signs: Last Vital Signs Pulse 80 02/18/25 13:53 BP 130/70 02/18/25 13:53 BMI result Body Mass Index 26.9 Const General: comfortable and no acute distress Orientation/consciousness: patient oriented x3 HEENT Other: Unremarkable Head: Yes normal to inspection Neck Neck: Yes normal visual inspection Chest Chest palpation & inspection: normal inspection of the chest Resp Auscultation: clear to auscultation bilaterally Cardio Palpation: normal PMI Heart sounds: S1 normal heart sound present, S2 normal heart sound present, no gallops, Murmur heart sound present systolic II/ and at the right sternal border and no rubs GI Palpation (GI): Soft to palpation Back/Spine/Pelvis Other: unremarkable Skin General skin exam: no rashes or lesions noted Neuro General: patient oriented x3 Extrem General: Yes normal to inspection Psych Mental Status: mental status grossly normal Office Procedures EKG Details: EKG with underlying sinus rhythm at 80/Min; rightward axis; downsloping STs with T inversions in the inferior and anterolateral [place] [id number], Complete Assessment & Plan Assessment & Plan (1) HOCM (hypertrophic obstructive cardiomyopathy): Code(s): I42.1 - Obstructive hypertrophic cardiomyopathy Category: Medical (2) PVC (premature ventricular contraction): Code(s): I49.3 - Ventricular premature depolarization Category: Medical (3) Essential hypertension: Code(s): I10 - Essential (primary) hypertension Category: Medical Plan Cardiac studies reviewed. EKG shows left ventricular hypertrophy/strain pattern. In the echocardiogram, hyperdynamic LVEF > 70%. There is severe septal hypertrophy. Septum measures 2.37 cm. Elsewhere, 1.96 cm. Resting LVOT gradient is 15 mm Hg with a peak of 57 mm Hg with Valsalva. Aortic arch measurement 3.9 cm. Cardiac MRI-LVEF 61%. Severe basal septal hypertrophy, 1.9 cm. Moderate concentric LVH elsewhere. NEVAEH+. Left atrium moderately dilated. Mild mitral regurgitation. Delayed enhancement involving 44% of myocardium. In the Holter monitor, underlying rhythm is sinus at 91/Min. Frequent ventricular ectopy with a burden of 2.3%. Rare couplets, triplets. Short runs of NSVT, up to 6 beats. Coronary CTA was not approved by insurance. ETT ordered but not completed. Overall, hypertrophic cardiomyopathy. It seems he might have had genetic testing at [facility] and we will get those records. Otherwise, recommendation was to get a prophylactic ICD but he is still undecided about that. We had a long conversation about the benefits but he would like to still think about it. He tried metoprolol but apparently had a lot of side effects and he could not breathe and hence we can try atenolol instead. Blood pressure is controlled on amlodipine. I encouraged him to follow up with [facility] and meet EP for ICD and he agrees to think about it. Reading material was given. We will see him back in about 3 months' time. Discussion Notes During the consultation, I discussed with the patient the serious nature of his arrhythmia and the potential benefits of an Implantable Cardioverter Defibrillator (ICD). 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 I explained that the ICD functions as a preventive measure, providing peace of mind against unforeseen cardiac events. We also discussed medication options to manage his PVCs in the meantime, considering his previous adverse reaction to metoprolol. The patient was advised to consider the timing of the ICD placement and to follow up with the specialist for further planning. Patient was informed and verbally consented to the use of an ambient scribe for clinic note documentation during this visit. Medications: New atenolol 25 mg PO DAILY 90 tabs 1RF Larry Elder MD Changed From omeprazole 20 mg PO DAILY 90 days 90 caps 3RF To omeprazole 20 mg PO DAILY PRN Shea Del Rosario MD Patient Instructions: - Consider the benefits and lifestyle impact of the ICD placement. - Follow up with the specialist to discuss the ICD placement timeline. - Monitor symptoms and report any significant changes. - Try the new medication as prescribed and report any adverse effects. Coding Level of Care Code Est Pt Level 4 (44325) Complex EM visit Add On G2211 Diagnoses HOCM (hypertrophic obstructive cardiomyopathy) I42.1 PVC (premature ventricular contraction) I49.3 Essential hypertension I10 CPT Codes EKG - CPT: 30146-[id number], Complete ([id number])
== END 2025-02-18 14:28 | disposition home or self-care (01) ==
LOC: HO.HCS 13:48
PROVIDERS: PCP Internal Medicine; Visit Provider Internal Medicine
DX: I42.1 Obstructive hypertrophic cardiomyopathy (principal); I49.3 Ventricular premature depolarization; I10 Essential (primary) hypertension
CPT/HCPCS: 93010; 99214

== ENCOUNTER → 2025-02-18 13:48 | Outpatient (BNVA) | payer OTHER, SELFPAY | PROVIDERS: PCP Internal Medicine; Visit Provider Internal Medicine | DX: I42.1 Obstructive hypertrophic cardiomyopathy (principal); I49.3 Ventricular premature depolarization; I10 Essential (primary) hypertension | CPT/HCPCS: 93005; 99212 ==

== ENCOUNTER 2025-06-15 14:28 | Outpatient (AMB) | payer OTHER, SELFPAY ==
--- NOTE | 2025-06-15 14:31 | MHC.OFFVIS ---
Vital Signs 06/15/25 14:32 Height 5 ft 11 in Weight 191 lb 12.835 oz BMI 26.7 BP 142/80 H Blood Pressure Location Lt brachial Position Sitting Pulse 87 Pulse Source Pulse Oximeter Intake Visit Reasons: 3 mth f/up Allergies seasonal allergies Allergy (Intermediate, Uncoded 10/29/24 16:58) runny nose, itchy eye Medication List - Last Reconciled 06/15/25 by Larry Elder MD amlodipine 10 mg PO DAILY 90 days omeprazole 20 mg PO DAILY PRN [testosterone cypionate 200 mg Not Applicable USEASDIRECTD] HPI Comments Details: Mahin returns for follow-up regarding hypertrophic cardiomyopathy. He underwent an echocardiogram because of cardiac murmur and then that showed hyperdynamic LVEF and severe ventricular hypertrophy. Subsequently, underwent cardiac MRI which confirmed hypertrophic cardiomyopathy. Subsequently, sent to [facility] for evaluation. Recommendation was to get an ICD but he has decided against it. Otherwise, he states he feels fine. He has got no cardiac symptoms whatsoever. On testosterone replacement because of testicular cancer history/orchiectomy. When he was young, he was doing steroids for body building but nothing recently. Otherwise, hypertension on amlodipine. No clear family history of any inherited cardiomyopathies or other concerns. [facility] Medical History History of testicular cancer Testosterone deficiency GERD (gastroesophageal reflux disease) Essential hypertension Surgical History History of orchiectomy History of inguinal hernia repair Family History Father Hypertension CVD (cardiovascular disease) Mother CVD (cardiovascular disease) Hypertension Lung cancer Paternal Grandfather Lung cancer Maternal Aunt Diabetes Social History Household Members: Spouse Housing: House Alcohol intake: current Alcohol intake frequency: a few times a week Alcohol type: hard liquor Patient Tobacco Use Status: Never used Tobacco e-Cigarette/Vaping Use: Never Used Second Hand Smoke Exposure: No Substance Use Type: Marijuana service: No Current occupational status: employed Current occupational exposures/hazards: No Cognitive needs: No Hearing needs: No Vision needs: Yes Review of Systems Const Denies weakness ENT Denies dizziness Card Denies chest pain, Denies chest pain with activity, Denies syncope, Denies rapid heart rate, Denies pedal edema, Denies edema, Denies leg edema, Denies lightheadedness, Denies palpitations, Denies dyspnea, Denies dyspnea on exertion and Denies orthopnea Resp Denies cough, Denies dyspnea and Denies dyspnea on exertion GI Denies hematochezia and Denies change in stool character Musc Denies abnormal gait, Denies muscle cramps, Denies muscle weakness, Denies numbness, Denies radiating pain into limb and Denies tingling Neuro Denies abnormal gait, Denies dizziness, Denies syncope, Denies numbness, Denies tingling and Denies weakness Endo Denies palpitations Physical Exam Vital Signs: Last Vital Signs Pulse 87 06/15/25 14:32 BP 142/80 H 06/15/25 14:32 BMI result Body Mass Index 26.7 Const General: comfortable and no acute distress Orientation/consciousness: patient oriented x3 HEENT Other: Unremarkable Head: Yes normal to inspection Neck Neck: Yes normal visual inspection Chest Chest palpation & inspection: normal inspection of the chest Resp Auscultation: clear to auscultation bilaterally Cardio Palpation: normal PMI Heart sounds: S1 normal heart sound present, S2 normal heart sound present, no gallops, Murmur heart sound present systolic II/ and at the right sternal border and no rubs GI Palpation (GI): Soft to palpation Back/Spine/Pelvis Other: unremarkable Skin General skin exam: no rashes or lesions noted Neuro General: patient oriented x3 Extrem General: Yes normal to inspection Psych Mental Status: mental status grossly normal Assessment & Plan Assessment & Plan (1) HOCM (hypertrophic obstructive cardiomyopathy): Code(s): I42.1 - Obstructive hypertrophic cardiomyopathy Category: Medical (2) PVC (premature ventricular contraction): Code(s): I49.3 - Ventricular premature depolarization Category: Medical (3) Essential hypertension: Code(s): I10 - Essential (primary) hypertension Category: Medical Plan Cardiac studies reviewed. EKG shows left ventricular hypertrophy/strain pattern. In the echocardiogram, hyperdynamic LVEF > 70%. There is severe septal hypertrophy. Septum measures 2.37 cm. Elsewhere, 1.96 cm. Resting LVOT gradient is 15 mm Hg with a peak of 57 mm Hg with Valsalva. Aortic arch measurement 3.9 cm. Cardiac MRI-LVEF 61%. Severe basal septal hypertrophy, 1.9 cm. Moderate concentric LVH elsewhere. NEVAEH+. Left atrium moderately dilated. Mild mitral regurgitation. Delayed enhancement involving 44% of myocardium. In the Holter monitor, underlying rhythm is sinus at 91/Min. Frequent ventricular ectopy with a burden of 2.3%. Rare couplets, triplets. Short runs of NSVT, up to 6 beats. The genetics panel, no known clinically actionable alterations noted. Variants of unknown significance detected. Coronary CTA was not approved by insurance in past. ETT ordered but not completed. Overall, hypertrophic cardiomyopathy but without any clinical symptoms. We again discussed about prophylactic ICD as advised at [facility] but he has decided against it. He states he would like to just take a chance. He wants to get an AED and keep at his work. Otherwise, we tried both atenolol and metoprolol and he apparently had lot of side effects and hence stopped taking them. With regard to blood pressure, on Amlodipine. Doses may need adjustment in the future. Otherwise, we will plan on re-applying for coronary CTA after beginning of the year. He will likely need follow-up echocardiogram and Holters sometime next year before his follow-up. However, he is not too keen on any further testing at this time as he is asymptomatic. Coding Level of Care Code Est Pt Level 4 (56415) Complex visit Add On G2211 Diagnoses HOCM (hypertrophic obstructive cardiomyopathy) I42.1 PVC (premature ventricular contraction) I49.3 Essential hypertension I10
[2025-06-15 14:32] VITALS: BP 142/80; PULSE 87; BMI 26.7
== END 2025-06-15 15:08 | disposition home or self-care (01) ==
LOC: HO.HCS 14:28
PROVIDERS: PCP Internal Medicine; Visit Provider Internal Medicine
DX: I42.1 Obstructive hypertrophic cardiomyopathy (principal); I49.3 Ventricular premature depolarization; I10 Essential (primary) hypertension
CPT/HCPCS: 99214

== ENCOUNTER → 2025-06-15 14:28 | Outpatient (BNVA) | payer OTHER, SELFPAY | PROVIDERS: PCP Internal Medicine; Visit Provider Internal Medicine | DX: I42.1 Obstructive hypertrophic cardiomyopathy (principal); I49.3 Ventricular premature depolarization; I10 Essential (primary) hypertension | CPT/HCPCS: 99212 ==

== ENCOUNTER 2025-07-14 09:27 | Outpatient (AMB) | payer OTHER, SELFPAY ==
--- NOTE | 2025-07-14 09:28 | MHC.OFFVIS ---
Vital Signs 07/14/25 09:29 Height 5 ft 11 in Weight 192 lb BMI 26.8 BP 156/96 H Blood Pressure Location Rt brachial Position Sitting Pulse 94 Pulse Source Pulse Oximeter Pulse Oximetry (%) 96 Oxygen Delivery Method Room Air Intake Visit Reasons: Added from [facility]. [place] screening. Intake Note: New pt for initial colo screening + eval of GERD. CC; C/O intermittent reflux which pt attributes to certain trigger foods. Pt will take PPI PRN which he states works OK for him. No additional sx or concerns. Legal Instruments Examiner Required: No Accompanied by: Self / Same As Patient Allergies Seasonal Allergies Allergy (Unknown, Verified 07/14/25 09:29) Sneezing HPI HPI Added from [facility]. [place] screening.: Details: 54 year old? male with past medical history of PVCs, hypertrophic obstructive cardiomyopathy, systolic murmur, pulmonary nodules, hypertension is here today for pre colonoscopy screening.? Patient was sent to us by his PCP.? Patient denies any gastrointestinal symptoms in the past or at present.? However he does report occasional reflux what she takes omeprazole for. Patient states that he only takes it occasionally. Trying to avoid food that cause the symptoms. Denies any personal or family history of gastrointestinal disease, colon polyps, or CRC.? Denies history of difficulty with sedation or anesthesia in the past.? Negative for history of sleep apnea.? Denies any history of renal, pulmonary, or hepatic disease.?? Patient has cardiomyopathy and is being evaluated by Cardiology. He supposed to go for CTA of the chest, however he had normal stress test. No history of infectious? diseases like hepatitis A, B, C, HIV or tuberculosis.? Patient is not on any anticoagulation [facility] Medical History History of testicular cancer Testosterone deficiency GERD (gastroesophageal reflux disease) Essential hypertension Surgical History History of orchiectomy History of inguinal hernia repair Family History Father Hypertension CVD (cardiovascular disease) Mother CVD (cardiovascular disease) Hypertension Lung cancer Paternal Grandfather Lung cancer Maternal Aunt Diabetes Social History Household Members: Spouse Housing: House Alcohol intake: current Alcohol intake frequency: a few times a week Alcohol type: hard liquor Patient Tobacco Use Status: Never used Tobacco e-Cigarette/Vaping Use: Never Used Second Hand Smoke Exposure: No Substance Use Type: Marijuana service: No Current occupational status: employed Current occupational exposures/hazards: No Cognitive needs: No Hearing needs: No Vision needs: Yes Review of Systems Const Denies weight gain and Denies weight loss ENT Reports no additional complaints, Denies dysphagia and Denies odynophagia Card Reports no additional complaints Resp Reports no additional complaints GI Denies abdominal pain, Denies belching, Denies melena, Denies bloating, Denies change in bowel habits, Denies dysphagia, Denies excessive flatus, Denies dyspepsia, Reports heartburn (Occasional), Denies diarrhea, Denies loose stools, Denies nausea, Denies odynophagia and Denies vomiting Reports no additional complaints Musc Reports no additional complaints Neuro Reports no additional complaints Psych Reports no additional complaints Endo Reports no additional complaints Physical Exam Vital Signs: Last Vital Signs Pulse 94 07/14/25 09:29 BP 156/96 H 07/14/25 09:29 Pulse Ox 96 07/14/25 09:29 Oxygen Delivery Method Room Air 07/14/25 09:29 BMI result Body Mass Index 26.8 Const General: healthy appearing, no acute distress and well developed Nutritional Appearance: well nourished Orientation/consciousness: patient oriented x3 Resp Effort & Inspection: normal respiratory effort, able to speak in complete sentences, no tracheal deviation and symmetric chest movement Auscultation: clear to auscultation bilaterally Cardio Rate: regular rate GI Inspection: Yes normal to inspection and No distended Palpation (GI): Soft to palpation, not firm, nontender and No hepatosplenomegaly present Auscultation: normal bowel sounds General: Yes no CVA tenderness Back/Spine/Pelvis Back: no CVA tenderness Skin General skin exam: elasticity normal, turgor normal and dry skin Neuro General: patient oriented x3 Psych Appearance: grossly normal Mental Status: mental status grossly normal Assessment & Plan Assessment & Plan (1) Screening for colon cancer: Code(s): Z12.11 - Encounter for screening for malignant neoplasm of colon Category: Medical (2) GERD (gastroesophageal reflux disease): Code(s): K21.9 - Gastro-esophageal reflux disease without esophagitis Category: Medical Qualifiers: Esophagitis presence: esophagitis presence not specified Qualified Code(s): K21.9 - Gastro-esophageal reflux disease without esophagitis Plan Patient denies any GI, cardiac or respiratory symptoms.? Occasional reflux which he takes omeprazole for. Maybe once or twice a week. Continue avoiding dietary triggers. Denies any issues with anesthesia in the past.? Denies any history of sleep apnea.? No history infectious diseases in the past or present.? Not on any anticoagulation therapy.? No family or personal history of colon cancer or polyps.? Patient denies melena, hematochezia, unintentional weight loss or ribbon like stools. Patient has a history of cardiomyopathy, was told by [facility] that he needs defibrillator, however patient was not agreeing with this. 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 Please call the office to clear patient. Discussed at length the pre-procedure,? prep, diet & medications as well as what to expect prior, during and after the procedure.?? Stressed the importance of good bowel prep.? Recommended the use of Vaseline or Calmoseptine OTC & baby wipes with bowel movements to promote comfort.? ?Patient verbalizes understanding and agrees to plan of care.? He was given the opportunity to ask questions and all questions answered.? We will see him after the procedure.? Orders: Referrals GI Procedure Notification Z12.11 - Encounter for screening for malignant neoplasm of colon Medications: New bisacodyl (Dulcolax (bisacodyl)) take 4 tabs at noon the day before your colonoscopy 20 mg (4 x 5 mg) PO ONCE 4 tabs 0RF constipation 1 day Z12.11 - Encounter for screening for malignant neoplasm of colon polyethylene glycol 3350 (Miralax) As directed by gastroenterology department at [facility] 238 grams PO ONCE 238 grams 0RF Z12.11 - Encounter for screening for malignant neoplasm of colon Coding Level of Care Code New Pt Level 3 (89457) Diagnoses Screening for colon cancer Z12.11 Gastroesophageal reflux disease, unspecified whether esophagitis present K21.9 Esophagitis presence: esophagitis presence not specified Time Spent (min) 40 Comment 30 minutes spent with patient and additional 10 minutes spent reviewing his records
[2025-07-14 09:29] VITALS: BP 156/96; PULSE 94; O2SAT 96; BMI 26.8
--- OUTSIDE RECORDS SUMMARY | 2025-07-14 12:06 | XMS_ITS | Clinical Summary ---
Author Organization [facility] Address [address] [place] [id number] Care Team Providers Care Hypo Splasher Name Role Phone Shea Mike Primary Care Provider [phone] Shea Mike Unavailable [phone] Allergies No known active allergies Medications metoprolol ER (TOPROL-XL) 50 MG 24 hr tablet Take 1 tablet (50 mg total) by mouth daily. 12/09/2024 Active omeprazole (PriLOSEC) [address] capsule Take 1 capsule (20 mg total) by mouth daily. 10/29/2024 Active amLODIPine (NORVASC) 10 MG tablet Take 1 tablet (10 mg total) by mouth daily. Active testosterone cypionate 200 mg/mL Syrg Inject 200 mg into the shoulder, thigh, or buttocks every 14 days. Active Active Problems Problem Noted Date Diagnosed Date Genetic testing 12/23/2024 Overview (12/23/2024): VUS: ACTN2 p.P598L and MYBPC3 p.[id number] HCMNext genetic test results from 12/23/2024 Family History Medical History Relation Comments Aortic dissection Maternal Aunt Hyperlipidemia Mother Other Mother possible diagnos is of HCM Relation Status Comments Father Maternal Aunt Maternal Cousin Maternal Uncle 1 Maternal Uncle 2 Maternal Uncle 3 Maternal Uncle 4 Mother Social History Tobacco Use Types Packs/Day Years Used Date Smoking Tobacco: Never Smokeless Tobacco: Never Tobacco Cessation:Counseling Given: Not Answered Alcohol Use Standard Drinks/Week Comments Yes 0 (1 standard drink = 0.6 oz pur e alcohol) Sex and Gender Information Value Date Recorded Sex Assigned at Male 09/09/2024 11:24 AM EST Legal Sex Male 11:22 AM EST Gender Identity Male 09/09/2024 11:24 AM EST Sexual Orientation Not on file Last Filed Vital Signs Vital Sign Reading Time Taken Comments Blood Pressure 129/90 12/11/2024 10:34 AM EDT Pulse 93 12/11/2024 10:34 AM EDT Temperature - - Respiratory Rate 16 12/11/2024 10:34 AM EDT Oxygen Saturation 97% 12/11/2024 10:34 AM EDT Inhaled Oxygen Concentration - - Weight 86.2 kg (190 lb) 12/11/2024 10:34 AM EDT Height 180.3 cm (5' 11 ) 12/11/2024 10:34 AM EDT Body Mass Index 26.5 12/11/2024 10:34 AM EDT Plan of Treatment Upcoming Encounters Date Type Department Care Team (Late st Contact Info) Description 01/07/2026 2:00 PM EDT Appointment [facility] NON-INVASIVE CARDIOLOGY TEST [facility] [address] [address] Feli Lindsay NP [address] [address] with Resource 01/07/2026 3:30 PM EDT Office Visit Hypertrophic Cardiomyopathy [facility] [address] [place] [id number] Thai Carmichael MD [address] Or, Rm 4F - 06 [place] [address] In Person with Physician Health Maintenance Due Date Last Done Comments Hemoglobin A1c 1968 Lipid Panel 1968 PSA 1968 Prostate Cancer Screening 1968 SDM 1968 Depression Screening 1980 Hepatitis C Screening 1986 CT Colonography 2013 Colonoscopy 2013 Colorectal Cancer Screening 2013 FIT 2013 FOBT 2013 Multitarget Stool DNA (Cologuard) 2013 Sigmoidoscopy 2013 Pneumococcal Vaccine: 50+ Ye ars (1 of 1 - PCV) 2018 Zoster Vaccine (1 of 2) 2018 COVID-19 Vaccine (1 - 2024-2 6 season) 2025 Influenza Vaccine (#1) 2025 Blood Pressure 12/11/2025 12/11/2024 DTaP,Tdap,and Td Vaccines (2 - Tdap) 05/14/2032 05/14/2022 Meningococcal B Vaccines Aged Out No longer eligible based on patient's age to complete this topic Meningococcal Vaccines Aged Out No lo nger eligible based on patient's age to complete this topic Insurance [facility]a [facility] [employer]cenancy FIDEL [id number] [facility] [place] [id number] [facility] Care Teams Hypo Splasher Relationship Specialty Start Date End Date Shea Mike [address] [place] [address] PCP - General 09/09/[address] iMke [address] [place] [address] PCP - Insurance Assigned PCP 12/04/24
== END 2025-07-14 10:10 | disposition home or self-care (01) ==
LOC: HO.HGI 09:28
PROVIDERS: PCP Internal Medicine; Visit Provider Nurse Practitioner Family
DX: Z01.818 Encounter for other preprocedural examination (principal); Z12.11 Encounter for screening for malignant neoplasm of colon; K21.9 Gastro-esophageal reflux disease without esophagitis
CPT/HCPCS: 99203

== ENCOUNTER → 2025-07-14 09:27 | Outpatient (BNVA) | payer OTHER, SELFPAY | PROVIDERS: PCP Internal Medicine; Visit Provider Nurse Practitioner Family | DX: Z12.11 Encounter for screening for malignant neoplasm of colon (principal); K21.9 Gastro-esophageal reflux disease without esophagitis; Z86.79 Personal history of other diseases of the circulatory system | CPT/HCPCS: 99202 ==